=== PATIENT | male | born 1940 | race Caucasian/White ===

== ENCOUNTER 2019-01-18 09:08 | Emergency (ER) | payer OTHER ==
--- NOTE | 2019-01-18 09:14 | NUR ---
PT BIB EMS, CPR IN PROGRESS. PT FROM [facility], BECAME SOB, EMS ASSISTED WITH BAGGING PT, BECAME BRADYCARDIC EN ROUTE AND CPR STARTED.
--- NOTE | 2019-01-18 09:19 | NUR ---
3 ROUNDS OF EPI, 1 BICARB AND 1 CALCIUM PER MD ORDER COMPLETED AT THIS [facility] DURING CODE. PT HAS NO SIGNS OF ROSC AT THIS TIME WITH HIGH QUALITY CPR IN PROGRESS.
--- NOTE | 2019-01-18 09:22 | NUR ---
4TH ROUND OF EPI COMPLETE.
--- NOTE | 2019-01-18 09:25 | NUR ---
TIME OF PRONOUNCED BY DR RHODES AT [id number]
--- NOTE | 2019-01-18 09:42 | NUR ---
[facility] CALLED, REFERRAL # FOR PT, [phone]
--- NOTE | 2019-01-18 09:45 | NUR ---
[place], [phone].
[2019-01-18] MEDS ORDERED: EPINEPHRINE SYRINGE 0.1 MG/ML, 10ML ONE (09:56)
[2019-01-18] MEDS ORDERED: CALCIUM CHLORIDE 10%, 10ML SYR ONE (09:56)
[2019-01-18] MEDS ORDERED: SODIUM BICARB 8.4%, 50ML SYRINGE ONE (09:56)
[2019-01-18] MEDS ORDERED: CODE BLUE RESPONSE XX ONE (09:56)
--- NOTE | 2019-01-18 10:13 | NUR ---
CURRENTLY FAMILY AVAILABLE AND NO HX OF PT IN CHART. Addendum: 01/18/19 at 1053 by MIGUEL CURRENTLY FAMILY UNAVAILABLE AND NO HX OF PT IN CHART.
--- NOTE | 2019-01-18 10:53 | NUR ---
PT BELONGINGS TO SECURITY FOR SAFE KEEPING.
== END 2019-01-18 11:00 | disposition expired ==
LOC: MERGE 09:08 → EDBD 09:08 → ED 10:02
DX: I46.9 Cardiac arrest, cause unspecified (principal)
CPT/HCPCS: 31500; 92950; 99285